=== PATIENT | female | born 1995 | race Caucasian/White ===

== ENCOUNTER 2017-07-20 03:50 | Inpatient (IN) | payer OTHER ==
[2017-07-20 04:19] LABS: ADD MAN DIFF? NO
[2017-07-20 04:25] LABS: WHITE BLOOD COUNT 9.6 10^3/ul (4.8-10.8)
[2017-07-20 04:25] LABS: BASOPHIL # 0.1 10^3/ul (0.0-0.1); BASOPHILS % 0.6 % (0.0-2.0); EOSINOPHILS % 0.4 % (0.0-7.0); HEMOGLOBIN 9.6 g/dl (12.0-16.0); LYMPHOCYTES # 2.6 10^3/ul (0.8-2.9); LYMPHOCYTES % 27.3 % (15.0-51.0); MEAN CORPUSCULAR HEMOGLOBIN 23.7 pg (29.0-33.0); MEAN CORPUSCULAR VOLUME 76.5 fl (82.0-101.0); MEAN PLATELET VOLUME 10.7 fl (7.4-10.4); MONOCYTE # 0.8 10^3/ul (0.3-0.9); MONOCYTES % 8.6 % (0.0-11.0); NEUTROPHILS % 62.1 % (39.0-77.0); PLATELET COUNT 314 10^3/UL (140-415); RED BLOOD COUNT 4.05 10^6/ul (4.20-5.40); RED CELL DISTRIBUTION WIDTH 15.9 % (11.5-14.5)
[2017-07-20] MEDS: LACTATED RINGER'S 1,000 ML IV ×2 (04:29→04:56)
[2017-07-20] MEDS ORDERED: OXYTOCIN 30 UNITS/LR 500 ML IV (04:30)
[2017-07-20] MEDS ORDERED: CARBOPROST 250 MCG INJ IM (04:30)
[2017-07-20] MEDS ORDERED: LIDOCAINE 1% (MPF) 30 ML INJ INJ (04:30)
[2017-07-20] MEDS ORDERED: BUTORPHANOL 2 MG INJ IV (04:30)
[2017-07-20] MEDS ORDERED: MISOPROSTOL 200 MCG TAB PR (04:30)
[2017-07-20] MEDS ORDERED: METHYLERGONOVINE 0.2 MG INJ IM (04:30)
[2017-07-20 04:55] LABS: INR 0.93; PROTIME 12.6 Sec (11.9-14.9)
[2017-07-20] MEDS ORDERED: FENTAnyl 2MCG/ML-ROPIV 0.2% 100 ML (04:59)
[2017-07-20] MEDS ORDERED: DIPHENHYDRAMINE 50 MG INJ IV (05:00)
[2017-07-20] MEDS ORDERED: NALOXONE (0.4 MG/ML) INJ IV (05:00)
[2017-07-20] MEDS ORDERED: ONDANSETRON 4 MG INJ IV (05:00)
[2017-07-20] MEDS: FENTAnyl 2MCG/ML-ROPIV 0.2% 100 ML BAG EPI (05:31)
[2017-07-20 06:24] LABS: HEPATITIS B SURFACE ANTIGEN NEGATIVE (NEGATIVE)
[2017-07-20] MEDS: OXYTOCIN 30 UNITS/LR 500 ML IV ×2 (09:31→10:00)
[2017-07-20] MEDS: IBUPROFEN 600 MG TAB PO ×2 (14:17→18:00)
[2017-07-20 15:23] LABS: RAPID PLASMA REAGIN NONREACTIVE (NR)
[2017-07-20] MEDS: WITCH HAZEL/GLYCERIN PAD PR (18:00)
[2017-07-20] MEDS: BENZOCAINE 20% 56 ML SPRAY TOP (18:01)
[2017-07-21] MEDS: IBUPROFEN 600 MG TAB PO ×5 (00:15→23:48)
[2017-07-21 11:11] LABS: ADD MAN DIFF? NO
[2017-07-21 11:14] LABS: BASOPHIL # 0.1 10^3/ul (0.0-0.1); BASOPHILS % 0.5 % (0.0-2.0); EOSINOPHILS # 0.2 10^3/ul (0.0-0.5); HEMATOCRIT 28.1 % (37.0-47.0); HEMOGLOBIN 8.8 g/dl (12.0-16.0); LYMPHOCYTES # 2.3 10^3/ul (0.8-2.9); LYMPHOCYTES % 21.1 % (15.0-51.0); MEAN CORPUSCULAR HEMOGLOBIN 23.7 pg (29.0-33.0); MEAN CORPUSCULAR HGB CONC 31.3 g/dl (32.0-37.0); MEAN CORPUSCULAR VOLUME 75.5 fl (82.0-101.0); MEAN PLATELET VOLUME 10.4 fl (7.4-10.4); MONOCYTE # 0.6 10^3/ul (0.3-0.9); MONOCYTES % 5.8 % (0.0-11.0); NEUTROPHIL # 7.6 10^3/ul (1.6-7.5); NEUTROPHILS % 69.5 % (39.0-77.0); PLATELET COUNT 235 10^3/UL (140-415); RED BLOOD COUNT 3.72 10^6/ul (4.20-5.40)
[2017-07-22] MEDS: IBUPROFEN 600 MG TAB PO ×2 (05:18→12:17)
== END 2017-07-22 17:30 | disposition home or self-care (01) | DRG 775 ==
LOC: OBT 03:50 → L-D 03:55 → PP1 10:45
PROVIDERS: Obstetrics & Gynecology
PROC: 10E0XZZ Delivery of Products of Conception, External Approach (ICD-10-PCS; principal; 2017-07-20)
DX: O42.92 Full-term premature rupture of membranes, unspecified as to length of time between rupture and onset of labor (principal); O69.81X0 Labor and delivery complicated by cord around neck, without compression, not applicable or unspecified; Z3A.38 38 weeks gestation of pregnancy; Z37.0 Single live birth
CPT/HCPCS: 62319; 85025; 85610; 85730; 86592; 86850; 86900; 86901; 87340